=== PATIENT | male | born 1980 | race Caucasian/White ===

== ENCOUNTER 2017-05-15 02:13 | Inpatient (IN) | payer SELFPAY ==
[2017-05-15] MEDS ORDERED: Ketorolac Tromethamine 30 MG/ML VIAL ONE ×2 (03:17→04:08)
[2017-05-15 03:30] LABS: #Basophils 0.2 thou/uL (0.0-0.2); #Eosinphils 0.2 thou/uL (0.0-0.7); #Lymphocytes 4.4 thou/uL (1.20-3.40); #Monocytes 0.9 thou/uL (0.11-0.59); #Neutrophils 5.5 thou/uL (1.40-6.50); %Basophils 1.4 % (0.0-1.0); %Eosinophils 1.9 % (0.0-10.0); %Lymphocytes 39.2 % (21.0-51.0); %Monocytes 8.1 % (0.0-10.0); Hematocrit 53.3 % (42.0-52.0); Red Blood Cell (RBC) Count 5.56 mill/uL (4.70-6.10); White Blood Cell (WBC) Count 11.1 thou/uL (4.8-10.8)
[2017-05-15] MEDS ORDERED: Azithromycin 500 MG VIAL ONE (03:37)
[2017-05-15 03:39] LABS: Anion Gap 14 mmol/L (10-20); BUN (Urea Nitrogen) 13 mg/dL (8.9-20.6); Calc. Creatinine Clearance 0 mL/min (70-130); Calcium 9.3 mg/dL (7.8-10.44); Carbon Dioxide 26 mmol/L (22-29); Chloride 104 mmol/L (98-107); Estimated GFR-MDRD 83
[2017-05-15] MEDS ORDERED: Ondansetron HCl/PF 4 MG/2 ML Vial ONE (04:56)
[2017-05-15 05:25] VITALS: BMI 22.4
[2017-05-15] MEDS ORDERED: Nitroglycerin 0.4 MG TAB (25 Tab Bottle) SL PRN (06:04)
[2017-05-15] MEDS ORDERED: Mag-Al 1200 mg/1200 mg/30 ML UDCUP PO PRN (06:04)
[2017-05-15] MEDS ORDERED: Senokot 8.6 MG TAB PO PRN (06:04)
[2017-05-15] MEDS ORDERED: Calcium Carbonate 500 MG ChewTAB PO PRN (06:04)
[2017-05-15] MEDS ORDERED: hydrALAZINE 20 MG/ML VIAL SLOW IVP PRN (06:04)
[2017-05-15] MEDS ORDERED: Benzonatate 100 MG CAP PO PRN (06:04)
[2017-05-15] MEDS ORDERED: Lorazepam 1 MG TAB PO PRN (06:04)
[2017-05-15] MEDS ORDERED: Diabetic Tussin 200 MG/10 ML UDCUP PO PRN (06:04)
[2017-05-15] MEDS ORDERED: cloNIDine 0.1 MG TAB PO PRN (06:04)
[2017-05-15] MEDS ORDERED: Loratadine 10 MG TAB PO PRN (06:04)
[2017-05-15] MEDS ORDERED: Acetaminophen 325 MG TAB PO PRN ×2 (06:04→06:10)
[2017-05-15] MEDS ORDERED: Bisacodyl 5 MG TAB PO PRN (06:04)
[2017-05-15] MEDS ORDERED: Ondansetron HCl/PF 4 MG/2 ML Vial IVP PRN ×2 (06:04→06:10)
[2017-05-15] MEDS ORDERED: Ketorolac Tromethamine 30 MG/ML VIAL IVP PRN (06:09)
[2017-05-15] MEDS ORDERED: Ondansetron ODT 4 MG TAB SL PRN (06:10)
[2017-05-15] MEDS ORDERED: FLU VACC QS2017-18 36 mo. & older 0.5 ML SYRINGE IM ONE (06:45)
--- NOTE | 2017-05-15 06:45 | HP ---
PRIMARY CARE PHYSICIAN: None. CHIEF COMPLAINT: Right-sided chest pain. HISTORY OF PRESENT ILLNESS: Mr. Cook is a 36-year-old male with known history of hydrocep halus status post ventriculopleural shunt at the age of 19 as well as history of bipolar disorder and tobacco abuse who presented to the ER with right-sided chest pain. History is mainly obtained by e patient himself. Electronic medical records have been reviewed. He was last admitted to our [facility] in 08/2016 for a pleural effusion and possible pneumonia. At that time, he underwent thoracentes is. All of his cultures were negative. His pleural fluid cytology showed atypical cells. He was se en by Pulmonary Medicine at that time and was supposed to follow up, but unfortunately has not been a ble to do so. Today, he presented to the ER after he had sudden onset of sharp right-sided chest pain. This was br ought on when he was getting his grandkid in his lap and tried to reach for his keys in his left pock et with his right hand. He felt a muscle pulled and he has been having pain in the right side since then. It is tender to palpation. Upon presentation to the ER his blood pressure was 156/112, oxygen saturation 97% on room air. He un derwent a general workup including a chest x-ray that showed increased right-sided pleural effusion. He also underwent a CT angio which was negative for pulmonary embolism, but showed moderate sized ri ght-sided pleural effusion and presence of the ventriculopleural tube. His EKG was unremarkable. Gi shmuel these findings, he was given IV antibiotics along with pain medications in the ER and is now bein g admitted for further workup. He has received vancomycin and azithromycin as well as [facility]. The patient otherwise denies any recent illnesses. Denies any fever, chills, cough, shortness of saroj ath. He denies any and off chest pain prior to the episode today. He has no sick contacts. PAST MEDICAL HISTORY: 1. History of multiple abdominal surgeries prior to the age of 19. The patient does not know why tonya were done, but in the record it says small-bowel obstruction. 2. History of hydrocephalus which is congenital in nature. The patient has undergone ventriculopulm onary shunt at the age of 19. 3. Tobacco abuse. 4. Bipolar disorder. 5. History of Staph infection in the abdomen as per the patient, requiring surgery in 2003. PAST SURGICAL HISTORY: 1. Multiple abdominal surgeries. 2. Multiple shunt revisions. According to the patient, he has had 28 shunt revisions in the past. It was done in [place], [place]. PAST PSYCHIATRIC HISTORY: Bipolar disorder. No suicidal or homicidal ideations. SOCIAL HISTORY: He smokes 1 pack of cigarettes per day. Occasional marijuana. He has 2 grandkids. He lives at home with his fiancee. No history of drug or alcohol abuse. FAMILY HISTORY: Significant for father who of complications of advanced lung cancer. Mother is healthy. ALLERGIES: CODEINE, SULFONIMIDE and SHELLFISH. CURRENT HOME MEDICATIONS: Depakote 250 mg 5 tablets at bedtime, Vistaril 50 mg 2 tablets at bedtime, trazodone 100 mg at bedtime, Zyprexa 10 mg at bedtime. REVIEW OF SYSTEMS: The following complete review of systems was negative, unless otherwise mentioned in the HPI or below: Constitutional: Weight loss or gain, ability to conduct usual activities. Skin: Rash, itching. Eyes: Double vision, pain. ENT/Mouth: Nose bleeding, neck stiffness, pain, tenderness. Cardiovascular: Palpitations, dyspnea on exertion, orthopnea. Respiratory: Shortness of breath, wheezing, cough, hemoptysis, fever or night sweats. Gastrointestinal: Poor appetite, abdominal pain, heartburn, nausea, vomiting, constipation, or diarrhea. Genitourinary: Urgency, frequency, dysuria, nocturia. Musculoskeletal: Pain, swelling. Neurologic/Psychiatric: Anxiety, depression. Allergy/Immunologic: Skin rash, bleeding tendency. LABORATORY: CBC shows WBC 11.1, platelet count of 251, hemoglobin 17.7, D-dimer 0.88, serum biochemistry technologist ambrocio are unremarkable. Chest x-ray by my review shows coiled ventriculopleural shunt in the right pleural space, otherwise n o evidence of pulmonary edema or infiltrate. CT angio results are read as negative for pulmonary emb olism. Formal results are pending at this time. PHYSICAL EXAMINATION: VITAL SIGNS: Upon presentation, blood pressure 156/112, pulse of 81, respirations 20, saturating 97% on room air, temperature 97.7. GENERAL: No acute distress, awake, alert, oriented x3. The patient is sitting up in bed, clutching his right side of his chest with his left hand and winces in pain with movement. HEENT: Mucous membranes are moist and pink. No oropharyngeal exudate or erythema. Head is normocep halic, atraumatic. Pupils equal, reactive to light and accommodation. Extraocular movements intact. NECK: Supple without any lymphadenopathy, JVD or bruit. CHEST: Clear to auscultation without any wheezing, rales or rhonchi. He is tender to palpation in t he right rib cage area with point tenderness laterally on the right lower chest. Rate and rhythm is regular without any murmur, rubs or gallops. ABDOMEN: Soft, nontender, nondistended. No rebound, guarding or rigidity. No hepatosplenomegaly. EXTREMITIES: Free of any cyanosis, clubbing, or edema. NEUROLOGIC: Nonfocal. SKIN: Free of any rashes or bruises. Feels warm and dry to touch. PSYCHIATRIC: Normal affect. IMPRESSION AND PLAN: 1. Right-sided chest pain. As per my examination, it seems more like a musculoskeletal pain, probab ly muscle spasm. We will give him a trial of muscle relaxant along with pain medication. I am not c ertain if this is related to his pleural effusion and that he has pneumonia. At this time, he has ju st been finishing up IV antibiotics and we will hold off on the antibiotics for now. We will consult Pulmonary for further recommendations. It seems like his pleural effusion is chronic and may not be the reason of his presentation. He may or may not need to repeat thoracentesis. I have reviewed th e results of his prior thoracentesis and all of his cultures were negative. He does not seem to have pulmonary embolism at this time as per the CT angio. He will be admitted to medical floor as he is hemodynamically stable. 2. History of hydrocephalus status post ventriculopleural shunt. 3. Bipolar disorder. We will resume his home medication of trazodone and Zyprexa and Depakote. 4. Ongoing tobacco abuse. The patient has been counseled. 5. Pleural effusion as per #1. 6. Deep venous thrombosis and gastrointestinal prophylaxis. DISPOSITION: The patient is currently being admitted to medical floor for further evaluation and car e of the right-sided pleural effusion with possible pneumonia. Estimated length of stay is at least 2-3 midnights. Further management will depend upon his clinical course.
[2017-05-15] MEDS: Famotidine 20 MG TAB PO SCH ×2 (08:46→21:36)
[2017-05-15] MEDS: Enoxaparin Sodium 40 MG/0.4 ML SYRINGE SC SCH (08:59)
--- NOTE | 2017-05-15 09:11 | CT ---
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 CONTRAST: 52 mL of ISOVUE 370 administered intravenously. COMPARISON: No relevant prior studies available. FINDINGS: Pulmonary arteries: No pulmonary embolism. Aorta: No acute findings. Lungs: Moderate-sized right pleural effusion, with associated atelectasis. Minimal pleural thickening and/or enhancement, suggesting exudative characteristics. Pleural space: Right anterolateral approach chest tube present, terminating within the right lateral pleural space. additional catheter tubing is present within the right medial and posterior pleural sp kelli. Heart: Normal. Bones/joints: No acute fracture. No dislocation. Soft tissues: Normal. Lymph nodes: Several small lymph nodes within the mediastinum, likely reactive. Other findings: Incidental note of accessory azygos fissure. IMPRESSION: 1. No pulmonary embolism. 2. Moderate-sized right pleural effusion, with associated atelectasis. Minimal pleural thickening and /or enhancement, suggesting exudative characteristics. 3. Right anterolateral approach chest tube present, terminating within the right lateral pleural spac e. additional catheter tubing is present within the right medial and posterior pleural space. 4. Incidental/non-acute findings are described above. Thank you for allowing us to participate in the care of your patient. Dictated and Authenticated by: Clayton Dumont MD 05/15/2017 3:25 AM Central Time ([place] & [place]) FINAL REPORT CONTRAST ENHANCED CTA CHEST: Date: 05/15/17 HISTORY: Status post IRON ERECTOR shunt placement. FINDINGS: Contrast enhanced CTA of the chest was performed with 2D and 3D reconstruction images performed on an independent 3D workstation. There appears to be a fragment of catheter in the right posterior pleura l space. Another segment of catheter appears to be along the right anterior chest wall and ending in the right mid pleural space. A right-sided pleural effusion is seen. Some atelectasis is seen in the right lung base. The lung parenchyma is otherwise unremarkable. No evidence of filling defects seen in the pulmonary a rteries to suggest pulmonary emboli. Aorta is unremarkable. IMPRESSION: 1. No evidence of pulmonary emboli. 2. Right-sided pleural effusion. 3. Two separate right pleural and chest wall catheters. Correlate with surgical history. POS: [facility]
--- NOTE | 2017-05-15 09:32 | RAD ---
FRONTAL AND LATERAL IMAGING OF THE CHEST: DATE: 05/15/17. COMPARISON: 08/14/16. HISTORY: Right-sided chest pain. FINDINGS: Segments of catheter tubing curl multiple times over the lower right hemithorax in the medial aspect of the right hemithorax. A portion of this tubing extends into the base of the neck on the right. N o pneumothorax is seen on either side. When compared to , pleural fluid on the right has slightly increased. There is mild nonspecific pulmonary parenchymal opacity within the lateral aspect of the right base/right costophrenic angle w hich may be on the basis of volume loss. Blunting of the left costophrenic angle may signify small v olume left pleural fluid or pleural thickening. IMPRESSION: Slight interval increase in volume of right pleural fluid with adjacent nonspecific parenchymal opaci ty. POS: [facility]
[2017-05-15] MEDS ORDERED: ISOVUE-370 76%-LOCM 1 ML ONE (09:47)
--- NOTE | 2017-05-15 12:28 | PDOC.EVN ---
Event Note - Event Note Event Note: pt seen and evaluated agree with current mx f/u pulm plan
--- NOTE | 2017-05-15 12:37 | CON ---
DATE OF CONSULTATION: 05/15/2017 CONSULTING PHYSICIAN: Dr. Blair REASON FOR CONSULTATION: Right pleural effusion. HISTORY OF PRESENT ILLNESS: The patient is a 36-year-old male who presented to the emergency room [facility] this morning with acute onset right-sided chest pain, pinpoint anteriorly, most inferior portio n of the rib cage. He said he had been lifting a child with his left arm when he reached into the po cket of his pants with his right hand and had the pain. He is continuing to have the pain at this ti me. He denies any fever or chills. He has had no headaches, no alteration in his mental status. PAST MEDICAL HISTORY: 1. Seizure disorder. 2. Hydrocephalus. 3. Ventricular pleural space shunt placement. 4. Thoracentesis by Dr. Barr in the past. 5. Tobacco abuse. 6. Bipolar disorder. 7. Peritonitis from Staphylococcal aureus from previous ventricular peritoneal shunt. 8. Multiple shunt revisions. PSYCHIATRIC HISTORY: Remarkable for bipolar disorder. SOCIAL HISTORY: He smokes a pack per day, occasionally uses marijuana. He lives at home with his fi mani. He occasionally works in the [employer]. FAMILY MEDICAL HISTORY: Remarkable for lung cancer. ALLERGIES: CODEINE, SULFA DRUGS and SHELLFISH. MEDICATIONS PRIOR TO ADMISSION: Depakote, Vistaril, trazodone and Zyprexa. REVIEW OF SYSTEMS: Otherwise, negative. PHYSICAL EXAMINATION: VITAL SIGNS: Temperature 97.4, pulse 61, respirations 16, O2 saturation 98%, blood pressure 122/71. GENERAL: He is awake and alert and in no distress. NEURO: Neurologically his pupils are 4 mm and responsive to light. Extraocular movements are intact . There are no sensory or motor deficits that I can detect on exam. HEENT: Otherwise unremarkable. NECK: No JVD. He has a shunt coming down the right side of his neck. LUNGS: Clear to auscultation except for slightly decreased breath sounds in the right base. CARDIAC: S1, S2 regular, without murmur. CHEST: He has point tenderness in the rib cage at the mid clavicular line anteriorly, most inferior portion. ABDOMEN: Soft. EXTREMITIES: No edema. LABORATORY DATA: Sodium 140, potassium 4.3, BUN 13, creatinine 1.0, glucose 102. White blood cell c ount 11, hematocrit 53, platelet count 251. His CT and chest x-ray were evaluated. He has a chronic pleural effusion on the right and some atele ctasis or pleural thickening just proximal to that which appears to be old. He has a shunt catheter present in his pleural space. No evidence of pulmonary emboli. ASSESSMENT: I think he is most likely suffering for musculoskeletal chest pain. I do not suspect th at we are dealing with an infected pleural space. RECOMMENDATIONS: I would recommend treating this with pain medication and discharging him home as so on as practical. I will inform Dr. Barr of the patient's admission. I do not think this patient needs a thoracentesis.
[2017-05-15] MEDS: Ibuprofen 800 MG TAB PO PRN ×2 (13:53→21:41)
[2017-05-15] MEDS ORDERED: Vancomycin HCl 1 GM in Premix Bag 1 BAG IVPB SCH (17:00)
[2017-05-16 05:44] LABS: #Basophils 0.1 thou/uL (0.0-0.2); #Eosinphils 0.3 thou/uL (0.0-0.7); #Lymphocytes 2.8 thou/uL (1.20-3.40); %Eosinophils 3.3 % (0.0-10.0); %Lymphocytes 34.5 % (21.0-51.0); %Monocytes 11.8 % (0.0-10.0); Hematocrit 49.2 % (42.0-52.0); Mean Platelet Volume 8.4 fL (7.4-10.4); Red Blood Cell (RBC) Count 5.13 mill/uL (4.70-6.10); White Blood Cell (WBC) Count 8.1 thou/uL (4.8-10.8)
[2017-05-16 05:58] LABS: Anion Gap 6 mmol/L (10-20); BUN (Urea Nitrogen) 12 mg/dL (8.9-20.6); Calc. Creatinine Clearance 127 mL/min (70-130); Calcium 8.6 mg/dL (7.8-10.44); Carbon Dioxide 28 mmol/L (22-29); Chloride 109 mmol/L (98-107); Estimated GFR-MDRD Greater than 90
[2017-05-16 07:50] VITALS: BP 111/73; TEMP 97.9
[2017-05-16] MEDS: Enoxaparin Sodium 40 MG/0.4 ML SYRINGE SC SCH (08:53)
[2017-05-16] MEDS: Famotidine 20 MG TAB PO SCH (08:53)
[2017-05-16] MEDS ORDERED: Cyclobenzaprine 10 MG TAB PO PRN (09:26)
--- NOTE | 2017-05-16 14:26 | PDOC.PN ---
- Subjective Encounter Start Date: 05/16/17 Encounter Start Time: 14:25 Subjective: feels well. still w on and off right sided chest pain -: some dyspnea on exertion - Objective MAR Reviewed: Yes Vital Signs & Weight: Vital Signs (12 hours) Temp Pulse Resp BP BP Pulse Ox 05/16/17 08:00 97.9 F 63 18 96 05/16/17 07:46 97.9 F 63 18 111/73 96 05/16/17 04:00 97.7 F 65 18 93/53 L 93 L Weight Weight 165 lb 5.547 oz I&O: 05/15/17 05/16/17 05/17/17 06:59 06:59 06:59 Intake Total 2700 420 Output Total 0 Balance 2700 420 Result Diagrams: 05/16/17 03:59 05/16/17 03:59 Phys Exam - Physical Examination Constitutional: NAD HEENT: PERRLA, moist MMs, sclera anicteric, oral pharynx no lesions Neck: no nodes, no JVD, supple, full ROM Respiratory: no wheezing, no rales, no rhonchi, clear to auscultation bilateral Cardiovascular: RRR, no significant murmur, no rub, gallop Gastrointestinal: soft, non-tender, no distention, positive bowel sounds Musculoskeletal: no edema, pulses present Neurological: non-focal, normal sensation, moves all 4 limbs Psychiatric: normal affect, A&O x 3 Skin: no rash Dx/Plan (1) Right-sided chest wall pain Code(s): R07.89 - OTHER CHEST PAIN Status: Acute Comment: Likley muscle spasms (2) Pleural effusion, right Code(s): J90 - PLEURAL EFFUSION, NOT ELSEWHERE CLASSIFIED Status: Chronic (3) Hx of hydrocephalus Code(s): Z86.69 - PERSONAL HISTORY OF DIS OF THE NERVOUS SYS AND SENSE ORGANS Status: Acute (4) Hx of ventricular shunt Code(s): Z98.2 - PRESENCE OF CEREBROSPINAL FLUID DRAINAGE DEVICE Status: Acute (5) Tobacco abuse Code(s): Z72.0 - TOBACCO USE Status: Acute - Plan 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 -: awaiting final recs from Dr. guerra about Pleural effusion. -: seems to be chroinc and streile.no fever/leucocytosis -: if no plans for thoracentesis,will DC home. -: hemodynamically stable.cont supportive care * . Review of Systems - Review of Systems Constitutional: negative: Fever, Chills, Sweats, Weakness, Malaise, Other Respiratory: negative: Cough, Dry, Shortness of Breath, Hemoptysis, SOB with Excertion, Pleuritic Pain, Sputum, Wheezing Cardiovascular: negative: Chest Pain, Palpitations, Orthopnea, Paroxysmal Noc. Dyspnea, Edema, Light Headedness, Other Gastrointestinal: negative: Nausea, Vomiting, Abdominal Pain, Diarrhea, Constipation, Melena, Hematochezia, Other Genitourinary: negative: Dysuria, Frequency, Incontinence, Hematuria, Retention , Other Musculoskeletal: negative: Neck Pain, Shoulder Pain, Arm Pain, Back Pain, Hand Pain, Leg Pain, Foot Pain, Other Neurological: negative: Weakness, Numbness, Incoordination, Change in Speech, Confusion, Seizures, Other - Medications/Allergies Allergies/Adverse Reactions: Allergies Allergy/AdvReac Type Severity Reaction Status Date / Time codeine Allergy Verified 08/15/16 01:07 shellfish derived Allergy Verified 10/17/13 09:45 Medications: Current Medications Acetaminophen (Tylenol) 650 mg PO Q4H PRN PRN Reason: Headache/Fever or Pain Last Admin: 05/15/17 08:46 Dose: 650 mg Al Hydroxide/Mg Hydroxide (Maalox) 30 ml PO Q6H PRN PRN Reason: Heartburn or Indigestion Benzonatate (Tessalon) 100 mg PO Q4H PRN PRN Reason: Cough Bisacodyl (Dulcolax) 10 mg PO DAILYPRN PRN PRN Reason: Constipation Calcium Carbonate (Tums) 1,000 mg PO Q4H PRN PRN Reason: Heartburn or Indigestion Clonidine (Catapres) 0.1 mg PO Q4H PRN PRN Reason: Systolic BP > 170 Cyclobenzaprine HCl (Flexeril) 10 mg PO TID PRN PRN Reason: Muscle Spasm Enoxaparin Sodium (Lovenox) 40 mg SC 0900 [facility] Last Admin: 05/16/17 08:53 Dose: 40 mg Famotidine (Pepcid) 20 mg PO BID [facility] Last Admin: 05/16/17 08:53 Dose: 20 mg Guaifenesin (Robitussin Sf) 200 mg PO Q4H PRN PRN Reason: Cough Hydralazine HCl (Apresoline) 10 mg SLOW IVP Q4H PRN PRN Reason: Systolic BP > 180 Ibuprofen (Motrin) 800 mg PO Q6H PRN PRN Reason: Pain Last Admin: 05/15/17 21:41 Dose: 800 mg Loratadine (Claritin) 10 mg PO DAILYPRN PRN PRN Reason: Sinus Symptoms Lorazepam (Ativan) 1 mg PO Q4H PRN PRN Reason: Anxiety/Agitation Last Admin: 05/15/17 21:49 Dose: 1 mg Nitroglycerin (Nitrostat) 0.4 mg SL Q5MIN PRN PRN Reason: Chest Pain Ondansetron HCl (Zofran) 4 mg IVP Q6H PRN PRN Reason: Nausea/Vomiting Senna (Senokot) 2 tab PO HSPRN PRN PRN Reason: Constipation
--- NOTE | 2017-05-16 15:43 | PRG ---
DATE OF SERVICE: 05/16/2017 SERVICE: Pulmonary Medicine. INTERVAL HISTORY: The patient is doing fine from a cardiovascular and respiratory standpoint. He is not coughing. He is not bringing up any sputum. He has no fevers or chills. There were no overnig ht events. He has got point tenderness on his chest. Otherwise, there has been no interval change t o his condition. PHYSICAL EXAMINATION: VITAL SIGNS: Afebrile, pulse 63, blood pressure 111/73, respirations 18, saturation 96% on room air. GENERAL: Patient is awake, alert, in no apparent distress. LUNGS: Decent air entry. There is no prolonged expiratory phase. There is slightly decreased air e ntry at the right base with dullness to percussion. There is no egophony. HEENT: Normocephalic, atraumatic. Sclerae are white, conjunctivae pink. Oral mucosa is moist witho ut lesions. CHEST: Decent air entry. There is no prolonged expiratory phase or wheezing. HEART: Normal rate and regular. ABDOMEN: Soft, nontender, nondistended. Bowel sounds positive. MUSCULOSKELETAL: No cyanosis or clubbing. No pitting in the bilateral lower extremities. NEUROLOGIC: Grossly nonfocal. LABORATORY DATA: WBC 8.1, hemoglobin 16.0, platelets 225,000. D-dimer 0.88. Basic metabolic profil e was essentially unremarkable. ASSESSMENT: 1. History of ventriculopleural shunt secondary to hydrocephalus. 2. Pleural effusion on the right, chronic. 3. Pulmonary infiltrate, previously present and likely associated with chronic atelectasis. 4. Chest wall tenderness. DISCUSSION/PLAN: There is actually no overlying erythema of chest wall. 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 He has never suffered with these types of disco mforts before. We will provide him with a 5-day course of steroids. If his white count goes up jill rrow, it is likely because of the steroids. I have no suspicion at this time if there is any infecti on that is playing a role here. He is requesting Neurosurgery, and look at him to make certain that his shunt is not malfunctioning. From a purely respiratory perspective, he no longer requires inpati ent hospital stay. As such, Pulmonary will sign off. Please call with additional questions or yamila rns, but I do not think a thoracentesis is indicated at this time.
--- NOTE | 2017-05-16 20:43 | DIS ---
DATE OF ADMISSION: 05/15/2017 DATE OF DISCHARGE: 05/16/2017 CONDITION AT THE TIME OF DISCHARGE: Stable and improved. DISCHARGE DIAGNOSES: 1. Musculoskeletal chest pain. 2. Chronic right-sided pleural effusion. 3. History of hydrocephalus, status post ventriculopleural shunt. 3. History of anxiety and depression. DISCHARGE MEDICATIONS: Resume home medication as follows: Depakote 250 mg at bedtime, trazodone 100 mg at bedtime, Vistaril 50 mg at bedtime, Zyprexa 10 mg at bedtime, and new medications, Flexeril 10 mg p.o. t.i.d. p.r.n. DISCHARGE FOLLOWUP: 1. With his primary care physician, the patient is instructed to follow up and establish care again at [facility]. 2. Neurosurgery, Dr. Bubba Baez. 3. Pulmonary Medicine, Dr. Barr. PROCEDURES DONE AT HOSPITAL: Include CT angio of the thorax upon presentation, which is negative for any pulmonary embolism. Findings are consistent with a right-sided pleural effusion and right pleur a and chest wall catheters consisting with his history of ventriculopleural shunt. CONSULTATIONS IN HOUSE: Include Pulmonary Medicine, Dr. Almaraz and Dr. Barr. HISTORY OF PRESENT ILLNESS: Mr. Cook is a very pleasant 36-year-old male with a history of ventricu lopleural shunt at the age of 19 for congenital hydrocephalus. The patient came to the emergency meg with complaints of sudden onset of right-sided chest pain which was at check point tenderness. He underwent a CT angio to rule out pulmonary embolism, which revealed right-sided pleural effusion. He has a history of right-sided pleural effusion requiring thoracentesis in the past, which was earlier this year and it was not infected. The patient was lost to follow up. He was admitted for further evaluation. Pulmonary Medicine was consulted. He received 1 dose of IV antibiotic in the emergency room. His chest x-ray or CT angio did not show any evidence of pneumonia . Please see admission history and physical for further details. HOSPITAL COURSE: The patient remained hemodynamically stable. He was treated with NSAIDs and was gi shmuel a trial of muscle relaxant which helped. He was seen by Dr. Almaraz and Dr. Barr. They agree d that this pleural effusion is rather chronic and does not need thoracentesis again. The patient wa s afebrile, had no leukocytosis or evidence of any infection. Antibiotics were not continued. He was seen and examined prior to discharge and was cleared by Pulmonary Medicine for discharge as hi s pain is more likely musculoskeletal and he does not require any invasive procedures for his chronic right-sided pleural effusion. He wanted to see the Neurosurgery, so outpatient referral for him was given. He is also instructed to follow with Pulmonary Medicine and establish care at PCP's clinic a s well. He was seen and examined by myself prior to discharge. Please see hospitalist progress note from prince hoffman's date for further details including [id number] interaction.
== END 2017-05-16 17:30 | disposition home or self-care (01) | DRG 313 ==
LOC: ERS 02:13 → T4-A 04:05
PROVIDERS: ADMIT Internal Medicine; ATTEND Internal Medicine
DX: R07.89 Other chest pain (principal); J90 Pleural effusion, not elsewhere classified; Z98.2 Presence of cerebrospinal fluid drainage device; F41.9 Anxiety disorder, unspecified; F32.9 Major depressive disorder, single episode, unspecified; F17.210 Nicotine dependence, cigarettes, uncomplicated; F31.9 Bipolar disorder, unspecified; F12.10 Cannabis abuse, uncomplicated
CPT/HCPCS: 36415; 71020; 71275; 80048; 85025; 85379; 93005; 94760; 96365; 96368; 96375; 96376; J0456; J0696; J1650; J1885; J2405; J3370

== ENCOUNTER 2017-09-18 16:09 | Outpatient (CLI) | payer OTHER ==
--- NOTE | 2017-09-18 17:22 | RAD ---
EXAM: THREE VIEWS CERVICAL SPINE 09/18/17 HISTORY: Neck pain. COMPARISON: None. FINDINGS: On the open mount projection, evaluation of the odontoid process is limited. Lateral masses of C1 and C2 articulate appropriately. There is no prevertebral soft tissue swelling. Predental space is normal. Cervical sine vertebral bod y height is maintained from C1 through C7. There is mild degenerative change of C6-C7 and C7-T1. A portion of a HOSPITALITY SERVICES MANAGER shunt catheter projects over the right scalp and neck soft tissues. On the AP projection, no malalignment. IMPRESSION: Mild degenerative changes in the lower cervical spine. Additional imaging if clinically warranted. POS: [facility]
== END 2017-09-18 16:10 | disposition home or self-care (01) ==
LOC: TBSIIMAG 16:09
PROVIDERS: ATTEND Neurological Surgery
DX: M54.2 Cervicalgia (principal); M47.892 Other spondylosis, cervical region
CPT/HCPCS: 72040

== ENCOUNTER 2018-07-24 03:35 | Emergency (ER) | payer SELFPAY ==
[2018-07-24 04:13] LABS: #Basophils 0.1 thou/uL (0.0-0.2); #Eosinphils 0.2 thou/uL (0.0-0.7); #Lymphocytes 2.7 thou/uL (1.20-3.40); #Monocytes 0.8 thou/uL (0.11-0.59); #Neutrophils 7.2 thou/uL (1.40-6.50); %Eosinophils 1.7 % (0.0-10.0); %Lymphocytes 24.9 % (21.0-51.0); %Monocytes 6.9 % (0.0-10.0); %Neutrophils 65.6 % (42.0-75.0); Mean Corpuscular HGB CONC 33.1 g/dL (32.0-36.0); Mean Corpuscular Hemoglobin 31.3 pg (27.0-31.0); Mean Corpuscular Volume 94.5 fL (78.0-98.0); Mean Platelet Volume 8.9 fL (7.4-10.4); Platelet Count 226 thou/uL (130-400); RBC Distribution Width 12.3 % (11.5-14.5)
[2018-07-24 04:32] LABS: ALT (SGPT) 14 U/L (8-55); AST (SGOT) 18 U/L (5-34); Albumin 4.5 g/dL (3.5-5.0); Alkaline Phosphatase 59 U/L (40-150); Anion Gap 12 mmol/L (10-20); BUN (Urea Nitrogen) 12 mg/dL (8.9-20.6); Bilirubin, Total 0.5 mg/dL (0.2-1.2); Calc. Creatinine Clearance 0 mL/min (70-130); Carbon Dioxide 26 mmol/L (22-29); Chloride 99 mmol/L (98-107); Estimated GFR-MDRD 79; Globulin 3.6 g/dL (2.4-3.5); Glucose 110 mg/dL (70-105); Potassium 3.8 mmol/L (3.5-5.1); Protein, Total 8.1 g/dL (6.0-8.3); Sodium 133 mmol/L (136-145)
--- NOTE | 2018-07-24 07:54 | RAD ---
TWO VIEW CHEST: INDICATION: Right pleural effusion. Cough and shortness of breath. COMPARISON: 05/15/2017. FINDINGS: There are bilateral pleural effusions, larger on the right. The chest findings of bilateral effusion s are similar to 05/15/2017 exam. The lungs otherwise appear clear and well aerated. The heart and m ediastinum are unremarkable. Radiopaque tubing overlies the right chest and appears coiled within th e right hemithorax, unchanged from prior exam. IMPRESSION: Bilateral effusions are similar to the exam of 2017. POS: [facility]
== END 2018-07-24 06:52 | disposition home or self-care (01) ==
LOC: ERS 03:35
DX: J20.9 Acute bronchitis, unspecified (principal); R11.2 Nausea with vomiting, unspecified; R19.7 Diarrhea, unspecified; F31.9 Bipolar disorder, unspecified; F41.9 Anxiety disorder, unspecified; F17.210 Nicotine dependence, cigarettes, uncomplicated
CPT/HCPCS: 36415; 71046; 80053; 85025

== ENCOUNTER → 2019-07-06 | Emergency (ER) | payer SELFPAY ==
[~2019-07-06] MED LIST: Acetaminophen 500 MG TAB ONE; Ketorolac Tromethamine 30 MG/ML VIAL IVP SCH; Ketorolac Tromethamine 30 MG/ML VIAL ONE; Metoclopramide HCl 10 MG/2 ML VIAL ONE; Nicotine 7 MG PATCH TOP SCH; Ondansetron ODT 4 MG TAB PO PRN; Ondansetron PF 4 MG/2 ML Vial IVP PRN; Ondansetron PF 4 MG/2 ML Vial ONE; diphenhydrAMINE 50 MG/ML VIAL ONE
[2019-07-06 13:08] LABS: #Basophils 0.1 thou/uL (0.0-0.2); #Eosinphils 0.1 thou/uL (0.0-0.7); #Lymphocytes 2.7 thou/uL (1.20-3.40); #Monocytes 0.8 thou/uL (0.11-0.59); #Neutrophils 6.4 thou/uL (1.40-6.50); %Basophils 0.9 % (0.0-1.0); %Eosinophils 0.9 % (0.0-10.0); %Lymphocytes 26.6 % (21.0-51.0); %Monocytes 7.8 % (0.0-10.0); %Neutrophils 63.8 % (42.0-75.0); Hemoglobin 16.8 g/dL (14.0-18.0); Mean Corpuscular HGB CONC 33.2 g/dL (32.0-36.0); Mean Corpuscular Hemoglobin 31.9 pg (27.0-31.0); Mean Corpuscular Volume 95.9 fL (78.0-98.0); Mean Platelet Volume 8.9 fL (7.4-10.4); Platelet Count 260 thou/uL (130-400); RBC Distribution Width 11.4 % (11.5-14.5); Red Blood Cell (RBC) Count 5.27 mill/uL (4.70-6.10); White Blood Cell (WBC) Count 10.1 thou/uL (4.8-10.8)
--- NOTE | 2019-07-06 13:20 | CT ---
EXAM: CT brain without contrast HISTORY: Headache for one week COMPARISON: 07/21/2015 TECHNIQUE: Multiple contiguous axial images were obtained and a CT of the brain without contrast. FINDINGS: The brain is normal in morphology and attenuation without focal lesions or confluent areas of infarction. The right posterior approach ventriculostomy catheter is unchanged in position. There is no evidence of hydrocephalus, intracranial hemorrhage, or extra-axial fluid collection. The calvarium and overlying soft tissues are unremarkable. The visualized paranasal sinuses and masto id air cells are well aerated. IMPRESSION: No evidence of acute intracranial abnormality
[2019-07-06 13:43] LABS: ALT (SGPT) 16 U/L (8-55); AST (SGOT) 19 U/L (5-34); Albumin 4.4 g/dL (3.5-5.0); Alkaline Phosphatase 79 U/L (40-110); Anion Gap 11 mmol/L (10-20); BUN (Urea Nitrogen) 14 mg/dL (8.9-20.6); Bilirubin, Total 0.7 mg/dL (0.2-1.2); Calc. Creatinine Clearance 0 mL/min (70-130); Calcium 9.5 mg/dL (7.8-10.44); Carbon Dioxide 24 mmol/L (22-29); Chloride 107 mmol/L (98-107); Estimated GFR-MDRD 84; Globulin 3.5 g/dL (2.4-3.5); Glucose 86 mg/dL (70-105); Lipase 37 U/L (8-78); Potassium 4.1 mmol/L (3.5-5.1); Protein, Total 7.9 g/dL (6.0-8.3); Sodium 138 mmol/L (136-145)
--- NOTE | 2019-07-06 14:14 | RAD ---
SHUNTOGRAM: Date: 07/06/2019 A total of five images. AP and lateral views of skull and neck with AP views of neck, chest, and uppe r abdomen. INDICATION: Assess MEAL ATTENDANT shunt catheter. Headache. Comparison made to shuntogram films dated 05/20/16. FINDINGS/IMPRESSION: MEAL ATTENDANT shunt catheter enters via the right parietal lobe. There is discontinuity at the site of the reser voir, which is unchanged in appearance from the prior study. Catheter in the right neck is coiled and this is a new finding when compared to the prior exam. The catheter is coiled over the right chest and the tip of the catheter overlies the right lung base peripherally at the CP angle. There is associated right pleural effusion. There appears to be a separate catheter overlying the midline of the chest of uncertain significance and etiology. Correlation made to CT chest of 05/15/17 which demonstrates both of these catheters with the ventricu lostomy catheter draining into the right chest cavity. Findings appear unchanged from the CT of 05/15. POS: [facility]
== END ==
LOC: ERS 12:28
DX: R51 Headache (principal); R11.2 Nausea with vomiting, unspecified; F31.9 Bipolar disorder, unspecified; F17.210 Nicotine dependence, cigarettes, uncomplicated; F41.9 Anxiety disorder, unspecified
CPT/HCPCS: 36415; 70450; 75809; 80053; 83690; 85025; 96365; 96375; J1200; J1885; J2405; J2765

== ENCOUNTER 2019-12-06 09:53 | Emergency (ER) | payer SELFPAY ==
--- NOTE | 2019-12-06 10:26 | RAD ---
EXAM: 3 views of the lumbosacral spine HISTORY: Low back pain COMPARISON: None FINDINGS: 3 views of the lumbosacral spine shows normal height and alignment of the vertebral bodies and intervertebral discs without fracture or subluxation. No significant degenerative changes are seen. The sacroiliac joints are unremarkable. A catheter projects over the upper abdomen. IMPRESSION: No significant lumbar spine abnormality.
[2019-12-06] MEDS ORDERED: HYDROcodone/Acetaminophen 5/325 mg Tablet ONE ×2 (11:57→12:05)
[2019-12-06] MEDS ORDERED: Ketorolac Tromethamine 30 MG/ML VIAL ONE (11:57)
== END 2019-12-06 13:00 | disposition home or self-care (01) ==
LOC: ERS 09:53
DX: S39.012A Strain of muscle, fascia and tendon of lower back, initial encounter (principal); F31.9 Bipolar disorder, unspecified; F41.9 Anxiety disorder, unspecified; F17.210 Nicotine dependence, cigarettes, uncomplicated; Z79.899 Other long term (current) drug therapy; X58.XXXA Exposure to other specified factors, initial encounter
CPT/HCPCS: 72100; 96372; J1885

== ENCOUNTER 2020-07-01 04:44 | Emergency (ER) | payer OTHER, SELFPAY ==
[2020-07-01] MEDS ORDERED: Fentanyl 100 MCG/2 ML VIAL ONE (06:45)
[2020-07-01] MEDS ORDERED: Promethazine HCl 25 MG/ML VIAL ONE (06:57)
--- NOTE | 2020-07-01 08:54 | PRG ---
DATE OF SERVICE: 07/01/2020 I personally interviewed and examined the patient, agreed with documentation of Duran Yeboah PA-C dated 06/30/2020. Briefly, Drew Cook is a 39-year-old gentleman, who tells me he has had multiple shunt revisions since he was born for hydrocephalus. He has been evaluated in our clinic 5 years ago and 7 years ago. He has been seen at the [facility] in [place] and they have managed his shunt over time. Mr. Cook woke up out of sleep overnight with acute onset headache that is retro-orbital on the right side. This headache was different from all the headaches he has had before when his shunt was underperforming. It was acute in onset that woke him from sleep and it brought him to the emergency department. There has been some associated nausea. When I examined Mr. Cook, he is wide awake. All his cranial nerves are working quite well. There is no lateralizing motor or sensory deficit. He is resting and able to sleep, but when I asked him about pain, it is quite severe. I reviewed CT imaging on Mr. Cook. In 2013, 2014, 2015, and June 2019, we have CT scans available. It was during these years when he had on and off headache issues and was evaluated for shunt under-performance. Those scans suggest very small ventricles. The shunt is in place, the lateral ventricles are hard to see, the third ventricle is barely visible, and the 4th ventricle is small. Sometime after those scans were made (September 2019), he had a shunt procedure in [place], [place]. They removed the distal end of the shunt from the pleural cavity of the right lung. It was externalized to a drain. Eventually, it was re-internalized and tunneled to the peritoneal cavity. For 8 months, he felt well. First headache since then was overnight last night. We examined previous x-rays and current x-rays of the shunt and he has a Strata valve in place. The setting has been changed from his previous setting. We interrogated the shunt with the Strata analyst programmer and the current setting is 1.5. I turned it down to 1.0. I depressed the shunt bulb and it refilled in a few seconds, 8 to 10 depressions had the same effect and there was no obvious clogging or under-performance. I reassured Mr. Cook that I thought the shunt was working reasonably well that the pressure had changed from his previous setting and the ventricles were now visible. I turned it down to 1.0 from 1.5, which I think should be a reasonable setting for him. However, the acute onset headache, different from all previous headaches, is somewhat concerning. CT examination did not show any obvious subarachnoid hemorrhage. For two reasons, a lumbar puncture could be considered. First, we get an opening pressure and see if there is any significant pressure buildup in the CSF space. Second, we could send the first and fourth tube for cell count to see if there is any suggestion of hemorrhage. I doubt we will find any. Also send it for protein and glucose, Gram stain and culture. We will perform this morning. We will collect the materials and give him a dose of Ancef before we get started. INFORMED CONSENT: I have discussed indications, risks, benefits, alternatives to the lumbar puncture. The risks we discussed included, but were not limited to, infection, shunt failure, need for surgery, low-pressure headache, subdural hematoma, paralysis, incontinence, neurologic complications, and . He understands the risks. He would like to proceed. Job ID: [id number] MTDD
--- NOTE | 2020-07-01 09:47 | CON ---
DATE OF CONSULTATION: 07/01/2020 CHIEF COMPLAINT: Headache. HISTORY OF PRESENT ILLNESS: Mr. Cook is a 39-year-old gentleman, who had a HEALTHCARE MARKETER shunt placed at . He states he has had at least 30 revisions of his shunt. Last revised was 2019 in [facility]. They revised the tubing from his lung into his stomach. He has also been seen at the [facility] in 2018 and 2016 with similar episodes. He states today that this is the worst headache of his life. On CT exam, there is no evidence of bleed. There is an enlargement of the left ventricle, which could be different than where he is accustomed to compared to other CT exams showing minimal ventricular size. On x-ray, it was confirmed that he had a Strata programmable HEALTHCARE MARKETER shunt. It was measured at 1.5 and reduced to 1. Headache, stated that he has experienced woke him up from sleep and he does complain of nausea and vomiting. REVIEW OF SYSTEMS: Negative unless stated in the above HPI. MEDICAL HISTORY: MRSA, HEALTHCARE MARKETER shunt, hydrocephalus, and seizures. SURGICAL HISTORY: HEALTHCARE MARKETER shunt, 25 to 30 revisions per patient; bowel surgery due to Staph infection in 2003; September 2019, HEALTHCARE MARKETER shunt relocated from lung to abdomen. SOCIAL HISTORY: The patient drinks alcohol socially. Admits to marijuana use. Currently smokes 1.5 packs per day. FAMILY HISTORY: Noncontributory to the case. MEDICATIONS: No medications. ALLERGIES: CODEINE AND SHELLFISH. PHYSICAL EXAMINATION: VITAL SIGNS: BP 120/90, pulse 72, respiratory rate 18, and temperature 97.7. HEENT: Pupils are equal. Extraocular movements are intact. NECK: Soft, supple. No masses are noted. Range of motion is intact and nonpainful. NEUROLOGIC: Awake, alert, and oriented x3. Memory, attention, fund of knowledge, and language are normal. Cranial nerves are grossly intact. Free active range of motion of all extremities. No focal motor weakness. No reflex asymmetry. GCS 15. ASSESSMENT: 1. Ventriculoperitoneal shunt. 2. Headache. PLAN: Reprogrammed HEALTHCARE MARKETER shunt from 1.5 to 1. If headaches do not improve, then lumbar puncture with opening pressure and cell count on vial #1 and #4. With protein, glucose, gram stain and cultures on the other fluid. No intracranial surgery at this time. We will have him follow up in our clinic in 1 to 2 weeks and repeat any scans prior to the visit. Job ID: [id number] [facility]ITAL[facility]
--- NOTE | 2020-07-01 09:57 | PRG ---
DATE OF SERVICE: 07/01/2020 I went back to Mr. Cook's bedside after pumping and reprogramming the shunt. I plan to do a lumbar puncture and we consented him to it. When I came in the room, he was sleeping and looked much more comfortable. I woke him up and he said the pain is easing off. I do not believe he has subarachnoid hemorrhage if the pain improved with few pumps of the shunt and a reprogramming. If he continues to get better, then we are going to avoid the LP and see him back in the office in a week or two. We will follow up at that time with another CAT scan to see what the scan looks like at a setting of 1.0. If it worsens abruptly again, we will reconsider the idea of an LP but I do not think it is going to be necessary. One to two days of pain medicine could be prescribed, but I do not think he is going to need it long-term. We will see him in the office. Job ID: [id number]
== END 2020-07-01 11:20 | disposition home or self-care (01) ==
LOC: ERS 04:44
DX: R51.9 Headache, unspecified (principal); F17.210 Nicotine dependence, cigarettes, uncomplicated
CPT/HCPCS: 96365; 96375; J2550; J3010

== ENCOUNTER 2020-07-02 17:56 | Emergency (ER) | payer OTHER, SELFPAY ==
--- NOTE | 2020-07-02 18:59 | CT ---
CT head noncontrast HISTORY: Headache. COMPARISON: 07/01/2020. FINDINGS: There is no evidence of acute intracranial hemorrhage or infarct. Right parietal ventriculo stomy is unchanged in position. Mild distention of the ventricular system is unchanged from the 06/30/2020 exam but remains slightly more prominent than on 07/06/2019. Focal area of encephalomalacia at the posterior left frontal lobe appears to connect with the left ve ntricular dilatation. Mild diffuse effacement of the cerebral sulci. Septum pellucidum remains midline. Old juvenal holes also evident at the right frontal and left parietal calvarium. IMPRESSION : Mild hydrocephalus is stable compared to 07/01/2020. Correlate for symptoms of shunt malfunction.
--- NOTE | 2020-07-02 19:06 | RAD ---
Shuntogram Skull 2 views Neck 1 view Chest one view Abdomen one view HISTORY: Shunt malfunction. Headache. COMPARISON: 07/01/2020. FINDINGS: Right parietal ventriculoperitoneal shunt again demonstrated, descending along the right si de of the chest and to the left upper quadrant of the abdomen. No discontinuity. Krzysztof holes of the skull correlate with CT findings. Chest radiograph shows small right pleural effusion similar in appearance to the prior study. Gas pat tern is nonspecific. Metallic clips overlie the right lower quadrant. IMPRESSION : No evidence of NECK CUTTER shunt discontinuity.
[2020-07-02] MEDS ORDERED: Metoclopramide HCl 10 MG/2 ML VIAL ONE (19:21)
[2020-07-02] MEDS ORDERED: Ketorolac Tromethamine 30 MG/ML VIAL ONE (19:21)
[2020-07-02] MEDS ORDERED: diphenhydrAMINE 50 MG/ML VIAL ONE (19:21)
== END 2020-07-02 20:50 | disposition home or self-care (01) ==
LOC: ERS 17:56
DX: R51.9 Headache, unspecified (principal); F17.210 Nicotine dependence, cigarettes, uncomplicated
CPT/HCPCS: 70450; 75809; 94760; 96365; 96375; J1200; J1885; J2765